=== PATIENT | male | born 1975 | race Caucasian/White ===

== ENCOUNTER 2016-11-01 13:01 | Outpatient (CLI) | payer OTHER | END 2016-11-01 13:02 | disposition home or self-care (01) | DX: G47.30 Sleep apnea, unspecified (principal); G47.8 Other sleep disorders; G47.10 Hypersomnia, unspecified; G47.00 Insomnia, unspecified; R06.83 Snoring ==

== ENCOUNTER 2016-12-05 21:58 | Outpatient (CLI) | payer OTHER | END 2016-12-05 21:59 | disposition home or self-care (01) | LOC: SC 21:58 | PROVIDERS: ATTEND Internal Medicine Pulmonary Disease | DX: G47.33 Obstructive sleep apnea (adult) (pediatric) (principal); G47.61 Periodic limb movement disorder; Z68.30 Body mass index [BMI] 30.0-30.9, adult | CPT/HCPCS: 95810 ==

== ENCOUNTER 2016-12-07 15:35 | Outpatient (CLI) | payer OTHER ==
[2016-12-07] MEDS ORDERED: GADOBUTROL 10 MMOL/10 ML SYRINGE IVP ONE (16:32)
--- NOTE | 2016-12-07 17:26 | MRI Report ---
EXAM: MRI BRAIN AND INTERNAL AUDITORY CANAL (IAC) EXAM DATE: 12/07/2016 04:57 PM. CLINICAL HISTORY: Right-sided sensorineural hearing loss COMPARISON: None. TECHNIQUE: Multiplanar, multisequence T1-weighted and fluid-sensitive MRA sequences of the brain and IACs were performed. Other: None. IV Contrast: Without and with. 9 mL Gadavist FINDINGS: Brain Volume: Normal for age. Parenchyma/Dura: No masses, infarcts, or hemorrhage. No white matter lesions identified. No parenchym al microhemorrhages. No intracranial enhancement. Internal Auditory Canals (IACs): Normal. No cranial nerve lesion or inflammatory process identified. The cerebellopontine angles bilaterally, the internal auditory canals bilaterally, the cochleas bilat erally, and the vestibular apparatuses bilaterally are unremarkable. No associated abnormal enhanceme nt. Ventricles/Cisterns: Normal. No hydrocephalus. Sinuses: Normal. Bones: Normal. Other: None. IMPRESSION: 1. No evidence of retrocochlear pathology. The cerebellopontine angles bilaterally, the internal leo tory canals bilaterally, the cochleas bilaterally, and the vestibular apparatuses bilaterally are unr emarkable. No associated abnormal enhancement. 2. Unremarkable MRI examination of the brain parenchyma with and without contrast. No acute intracran ial abnormality. No significant white matter disease. No abnormal intracranial enhancement [facility] Referring Provider Line: [phone] SITE ID: [id number]
== END 2016-12-07 15:36 | disposition home or self-care (01) ==
LOC: DI 15:35
PROVIDERS: ATTEND Otolaryngology Facial Plastic Surgery
DX: H90.41 Sensorineural hearing loss, unilateral, right ear, with unrestricted hearing on the contralateral side (principal)
CPT/HCPCS: 70553; A9585

== ENCOUNTER 2017-01-04 08:56 | Outpatient (CLI) | payer OTHER | END 2017-01-04 08:57 | disposition home or self-care (01) | LOC: SC 08:56 | PROVIDERS: ATTEND Nurse Practitioner Family | DX: G47.33 Obstructive sleep apnea (adult) (pediatric) (principal); G47.61 Periodic limb movement disorder | CPT/HCPCS: 99212; 99214 ==

== ENCOUNTER 2017-02-21 14:44 | Outpatient (CLI) | payer OTHER | END 2017-02-21 14:45 | disposition home or self-care (01) | LOC: SC 14:44 | PROVIDERS: ATTEND Nurse Practitioner Family | DX: G47.33 Obstructive sleep apnea (adult) (pediatric) (principal) | CPT/HCPCS: 99212; 99214 ==

== ENCOUNTER 2017-03-23 10:11 | Outpatient (CLI) | payer OTHER | END 2017-03-23 10:12 | disposition home or self-care (01) | LOC: SC 10:11 | PROVIDERS: ATTEND Nurse Practitioner Family | DX: G47.33 Obstructive sleep apnea (adult) (pediatric) (principal) | CPT/HCPCS: 99212; 99214 ==

== ENCOUNTER 2020-07-02 22:46 | Outpatient (CLI) | payer OTHER | END 2020-07-02 22:47 | disposition short-term general hospital (02) | LOC: EMS 22:46 | PROVIDERS: ATTEND Surgery | DX: R20.2 Paresthesia of skin (principal); R11.10 Vomiting, unspecified | CPT/HCPCS: A0425; A0429 ==